=== PATIENT | female | born 1975 | race Caucasian/White ===

== ENCOUNTER 2018-09-03 07:21 | Day surgery (SDC) | payer OTHER ==
[2018-09-03 07:49] VITALS: BMI 23.9
--- NOTE | 2018-09-03 08:19 | CP.SDSHP ---
Same Day Surgery H & P - History Proposed Procedure: colonscopy Pre-Op Diagnosis: SEE NOTES - Previous Medical/Surgical History Endocrine/Metabolic: Other Misc: Other Pain: 4.Moderate Pain - Allergies Allergies: Allergies Penicillins Allergy (Verified 09/03/18 07:48) RASH - Physical Exam General Appearance: N Vital Signs: Vital Signs 09/03/18 09/03/18 07:57 08:15 Temperature 97.8 F 97.8 F Pulse Rate 78 78 Respiratory 16 16 Rate Blood Pressure 105/69 105/69 O2 Sat by Pulse 98 98 Oximetry Mental Status: Alert & Oriented x3 Neuro: WNL Heart: WNL Lungs: WNL GI: Other - {Optional Preform as Required} Breast: WNL Abdomen: Other Rectal: Other Integument: WNL : WNL Ortho: WNL ENT: WNL - Impression Pt. Evaluated Today:Candidate for Anesthesia & Procedure: Yes - Date & Time Time: 08:19 Short Stay Discharge - Short Stay Discharge Admitting Diagnosis/Reason for Visit: DIARRHEA Disposition: HOME/ ROUTINE Referrals: Alex Harrell MD [Primary Care Provider] -
[2018-09-03] MEDS ORDERED: Propofol 10 mg/ml Inj (20 ML) ONE (08:20)
[2018-09-03 08:53] VITALS: O2SAT 100
[2018-09-03] MEDS ORDERED: Belladonna-Phenobarbital PO ONE (09:00)
[2018-09-03 10:07] VITALS: BP 111/64; PULSE 74; RESP 12; TEMP 97.7
== END 2018-09-03 09:50 | disposition home or self-care (01) ==
LOC: C.ENDO 07:21
PROVIDERS: ATTEND Specialist
DX: K51.511 Left sided colitis with rectal bleeding (principal); K58.0 Irritable bowel syndrome with diarrhea; K64.8 Other hemorrhoids; K64.4 Residual hemorrhoidal skin tags; K63.89 Other specified diseases of intestine; Z88.0 Allergy status to penicillin
CPT/HCPCS: 45380; 84703; 88305; J2001; J2704; J2765

== ENCOUNTER 2018-09-04 09:09 | Day surgery (SDC) | payer OTHER ==
[2018-09-03 07:49] VITALS: BMI 23.9
[2018-09-04] MEDS ORDERED: Propofol 10 mg/ml Inj (20 ML) ONE (09:58)
[2018-09-04] MEDS ORDERED: Belladonna-Phenobarbital PO STA (10:01)
--- NOTE | 2018-09-04 10:01 | CP.SDSHP ---
Same Day Surgery H & P - History Proposed Procedure: EGD Pre-Op Diagnosis: SEE NOTES - Previous Medical/Surgical History Misc: Other Pain: 4.Moderate Pain - Allergies Allergies: Allergies Penicillins Allergy (Verified 09/04/18 09:24) RASH - Physical Exam General Appearance: N Vital Signs: Vital Signs 09/04/18 09:20 Temperature 97.3 F L Pulse Rate 73 Respiratory 16 Rate Blood Pressure 101/63 O2 Sat by Pulse 100 Oximetry Mental Status: Alert & Oriented x3 Neuro: WNL Heart: WNL Lungs: WNL GI: Other - {Optional Preform as Required} Breast: WNL Abdomen: Other Rectal: Other Integument: WNL : WNL Ortho: WNL ENT: WNL - Impression Pt. Evaluated Today:Candidate for Anesthesia & Procedure: Yes - Date & Time Time: 10:00 Short Stay Discharge - Short Stay Discharge Admitting Diagnosis/Reason for Visit: DYSPEPSIA Disposition: HOME/ ROUTINE Referrals: Alex Harrell MD [Primary Care Provider] -
[2018-09-04] MEDS ORDERED: Pantoprazole 40 mg EC Tab PO STA (10:02)
[2018-09-04 10:32] VITALS: TEMP 98.4
[2018-09-04 10:36] VITALS: O2SAT 100
[2018-09-04 11:30] VITALS: RESP 15
[2018-09-04 11:34] VITALS: BP 108/66; PULSE 68
== END 2018-09-04 11:15 | disposition home or self-care (01) ==
LOC: C.ENDO 09:09
PROVIDERS: ATTEND Specialist
DX: K30 Functional dyspepsia (principal); R10.13 Epigastric pain; K20.9 Esophagitis, unspecified; K44.9 Diaphragmatic hernia without obstruction or gangrene
CPT/HCPCS: 43239; 84703; 88305; J2405; J2704; J2765